=== PATIENT | female | born 1960 ===

== ENCOUNTER 2017-03-18 20:16 | Emergency (ER) | payer OTHER ==
[2017-03-18] MEDS ORDERED: METOPROLOL TARTRATE 50 MG TAB PO ONE (20:39)
[2017-03-18] MEDS ORDERED: METOPROLOL TARTRATE 25 MG TAB ONE (20:40)
[2017-03-18 20:46] LABS: BASOPHILS % (AUTO) 1 % (0-3); EOSINOPHILS % (AUTO) 3 % (0-9); HEMATOCRIT 36 % (35-47); MEAN CORPUSCULAR HGB CONC 34.4 gm/dl (32.0-36.0); MEAN CORPUSCULAR VOLUME 84 fL (81-99); MONOCYTES % (AUTO) 6.9 % (0-12)
[2017-03-18 21:06] LABS: CALCIUM 8.6 mg/dl (8.5-10.1); POTASSIUM 3.7 mMol/L (3.5-5.1)
[2017-03-18 21:31] VITALS: TEMP 98.6
[2017-03-18] MEDS ORDERED: CLONIDINE 0.1 MG TAB PO ONE (21:50)
[2017-03-18] MEDS ORDERED: CLONIDINE 0.1 MG TAB ONE (21:53)
[2017-03-18 23:17] VITALS: BP 154/70; PULSE 62; RESP 18; O2SAT 98
== END 2017-03-18 22:33 | disposition home or self-care (01) ==
LOC: ED 20:16
DX: R00.2 Palpitations (principal)
CPT/HCPCS: 36415; 80048; 83880; 84484; 85025; 93005; 99283; 99284